=== PATIENT | female | born 1970 | race Caucasian/White ===

== ENCOUNTER → 2020-04-27 12:49 | Outpatient (CLI) | payer BC, MEDICARE, SELFPAY ==
[2020-04-19 15:34] VITALS: BMI 25.3
--- NOTE | 2020-04-27 12:51 | ECHOD_ITS ---
Left Ventricle Normal LV size. Left ventricular systolic function is normal. The estimated ejection fraction is 60 %. Stage 2 diastolic dysfunction. No regional wall motion abnormalities noted. Right Ventricle Normal RV size. Normal systolic function. Atria Normal left atrium. Normal right atrium. Mitral Valve Normal mitral valve. Tricuspid Valve Normal tricuspid valve. Aortic Valve Normal aortic valve. Trisinus/trileaflet aortic valve. Pulmonic Valve Normal pulmonic valve. Great Vessels Normal aortic root. The pulmonary artery is normal size. Normal inferior vena cava. Pericardium/Pleural No pericardial effusion. MMode/2D Measurements & Calculations LVIDd: 4.0 cm IVSd: 0.94 cm Ao root diam: 2.9 cm LVIDs: 2.8 cm LVPWd: 0.93 cm RVDd: 2.6 cm FS: 30.0 % LAV(MOD-bp): 41.5 ml LA A4 area: 14.3 cm2 LA dimension(2D): 3.6 cm LAV(MOD-bp) Indexed: 23.0 ml/m2 LAV(MOD-sp2): 48.2 ml LAV(MOD-sp4): 31.0 ml RA A4 area: 10.4 cm2 Time Measurements MV dec time: 0.24 sec Doppler Measurements & Calculations MV E max wu: 80.5 cm/sec Lat Peak E' Wu: 15.7 cm/sec Med Peak E' Wu: 9.0 cm/sec MV A max wu: 52.5 cm/sec E/E' lat: 5.1 E/E' med: 9.0 MV E/A: 1.5 Ao V2 max: 124.6 cm/sec LV V1 max: 95.1 cm/sec PA V2 max: 102.9 cm/sec Ao max P.2 mmHg LV V1 max P.6 mmHg PI end-d wu: 80.1 cm/sec Interpretation Summary Normal LV size. Left ventricular systolic function is normal. The estimated ejection fraction is 60 %. Stage 2 diastolic dysfunction. Ordering Physician: Mane Davenport Referring Physician: Mane Davenport
== END ==
PROVIDERS: PCP Family Medicine; Referring Provider Internal Medicine Cardiovascular Disease; Visit Provider Internal Medicine Cardiovascular Disease
DX: R00.1 Bradycardia, unspecified (principal)
CPT/HCPCS: 93225; 93226; 93306

== ENCOUNTER → 2020-05-25 09:19 | Outpatient (CLI) | payer BC, MEDICARE, SELFPAY ==
[2020-04-19 15:34] VITALS: BMI 25.3
--- NOTE | 2020-05-25 09:22 | STE_ITS ---
Reason For Study: Chest Pain Stress Results Protocol: Dobutamine Stress Echo Maximum Predicted HR: 173 bpm Target HR: 147 bpm % Maximum Predicted HR: 86 % Heart Stage Duration Rate BP Comment (mm:ss) (bpm) No Chest Pain; Attempted Jace Protocol for 3 Min 14 Seconds; Patient Baseline 60 117/46Could Not Continue to Walk D/T Leg Pain; Converted to Dobutamine Stress Echo DSE 10 MCG 3:23 59 106/50No Chest Pain DSE 20 MCG 3:00 110 139/91No Chest Pain DSE 30 MCG 3:00 105 137/76No Chest Pain; Atropine 0.25 MG IVP DSE 40 MCG 3:53 148 115/73No Chest Pain; Atropine 0.25 MG IVP No Chest Pain; N/V; Dizziness; Pale 1 Minute Into Recovery-BP 99/77- Recovery 85 126/57HR 153 BPM- NS Wide Open; Patient Returned to Baseline Within 15 Minutes Stress Duration: 13:16 mm:ss Maximum Stress HR: 148 bpm METS: 1 Baseline Echocardiogram Findings Stress Echo Wall motion Data Resting WM Intermediate WM Stress WM Interpretation Summary Dobutamine stress echocardiogram. 49-year-old lady with a history of chest discomfort and bradycardia. Stress protocol: Resting EKG demonstrated sinus rhythm with a rate of 56 bpm resting blood pressure was 102/66 mmHg. The patient initially attempted to exercise by the Jace protocol and attained a maximum heart rate of 106 bpm after exercising for 3 minutes and 14 seconds. The maximum workload was 5.1 metabolic equivalents. Due to leg discomfort patient was unable to attain target heart rate. The test was therefore converted to a dobutamine test. Dobutamine was started at 10 mcg/kg/min increasing to a peak of 40 mcg/kg/min. Patient required 0.5 mg of atropine given 0.25 mg aliquots. Continuous EKG monitoring was performed. The patient maintained sinus rhythm throughout the recording. There were no ST or T wave changes noted to suggest ischemia. The maximum heart rate was 162 bpm which was 93% of maximum predicted heart rate. The peak blood pressure was 144/77 mmHg. Test was terminated due to the target heart rate being achieved. Stress echocardiogram. Resting echocardiographic evaluation demonstrated an ejection fraction of 55%. No wall motion abnormalities were noted. At low dose there was improvement in left ventricular systolic function and at peak dose there was near chamber obliteration with a peak ejection fraction of 75%. No wall motion abnormalities were noted to suggest ischemia. During recovery left ventricular systolic function returned to normal. Conclusion: Dobutamine stress echocardiogram with normal resting echocardiographic evaluation as well as normal stress augmentation. Ordering Physician: Mane Davenport Referring Physician: Roshan Ann Performed By: Clarice Aparicio RDCS
== END ==
PROVIDERS: PCP Family Medicine; Referring Provider Internal Medicine Cardiovascular Disease; Visit Provider Internal Medicine Cardiovascular Disease
DX: R07.9 Chest pain, unspecified (principal); R06.00 Dyspnea, unspecified; R00.2 Palpitations
CPT/HCPCS: 93017; 93350; J7040; A4216